=== PATIENT | female | born 1940 | race Caucasian/White ===

== ENCOUNTER → 2016-10-30 | Outpatient (CLI) | payer OTHER, MEDICARE | LOC: FIMAGING 11:27 | PROVIDERS: ATTEND Family Medicine | DX: Z12.31 Encounter for screening mammogram for malignant neoplasm of breast (principal) | CPT/HCPCS: G0202 ==

== ENCOUNTER 2016-11-23 11:56 | Emergency (ER) | payer OTHER, MEDICARE ==
[2016-11-23 12:19] VITALS: RESP 16; TEMP 98.1
--- NOTE | 2016-11-23 13:27 | EDPHY ---
H & P Time Seen by Provider: 11/23/16 12:56 HPI/ROS: CHIEF COMPLAINT: Vertigo HISTORY OF PRESENT ILLNESS: Patient was sent by her primary practice for vertigo. She describes to me a vertigo for many years and describes for me decades of slouching her head forward and getting spinning when she moves into an upright position with her head. For the last 3 years she has been working with the physical therapist on these vestibular symptoms and she feels like it is improving. This past Wednesday night she sat up and moved, and the room started moving and rolling. She was able to walk to the bathroom and back. Since Wednesday she feels like her head is spinning when she moves. It is better lying down. It is similar to previous vertigo except over the past 24 hours her usual physical therapy exercises are not making it better. On my evaluation she is lying on her left side in the bed and is not symptomatic unless she gets up or moves around. Symptoms moderate today. She drove to the office. The office referred the patient to the emergency department for further evaluation. REVIEW OF SYSTEMS: Eye: no change in vision, no double vision ENT: no sore throat Cardiac: no chest pain or syncope Pulmonary: no cough or SOB Abdomen: no vomiting, diarrhea, abdominal pain Musculoskeletal: Chronic plantar fasciitis, unchanged. No neck pain. No recent acceleration or deceleration injury. Skin: no rash Neuro: no headache Constitutional: no fever : no urinary symptoms A comprehensive 10 point review of systems is otherwise negative aside from elements mentioned in the history of present illness. PAST MEDICAL HISTORY: Vertigo as above. Cystocele. Left shoulder surgery. Social history: Travels a lot, plans to go to [place] on a hiking trip in 2 and half weeks. General Appearance: Alert and conversant, cooperative. Eyes: No scleral icterus. Extraocular motion intact. ENT, Mouth: Normal mucous membranes. Normal ear canals and tympanic membranes bilaterally. Respiratory: Normal respiratory effort, breath sounds equal, lungs are clear to auscultation. Cardiovascular: Regular rate and rhythm. Gastrointestinal: Abdomen is soft and non tender. Neurological: Alert and oriented x3. Normally conversant. Face symmetric, normal movement and sensation in all extremities. No pronator drift and finger- to-nose normal bilaterally, normal heel to diehl. Skin: Warm and dry, no rashes. Musculoskeletal: No peripheral edema and no joint swelling. No neck tenderness. Psychiatric: Not agitated. Emergency Department course/MDM: I think it is likely the patient has a worse episode of her chronic vestibular symptoms. Plan for MRI, discharge with oral meclizine if negative for stroke or dissection. 1500: Results discussed. MRI negative for cerebellar infarct or other abnormality, angiography negative. Results discussed with the patient who is ambulatory and standing on the phone when I enter the room. Likely peripheral vertigo, symptomatic treatment. Smoking Status: Never smoked Constitutional: Initial Vital Signs Temperature (C) 36.7 C 11/23/16 12:11 Heart Rate 62 11/23/16 12:11 Respiratory Rate 16 11/23/16 12:11 O2 Sat (%) 96 11/23/16 12:11 O2 Delivery Mode Room Air Allergies/Adverse Reactions: meperidine [From Demerol] Allergy (Verified 11/23/16 12:19) morphine Allergy (Verified 11/23/16 12:19) Home Medications: Medication Instructions Recorded Lipitor 11/23/16 Meclizine HCl [Meclizine HCl 25 mg 25 mg PO Q6 PRN #20 tab 11/23/16 (RX,OTC)] Synthroid 11/23/16 Medical Decision Making - Diagnostics Imaging Results: Imaging Impressions Brain MRI 11/23/16 13:11 Impression: 1. Mild cerebral atrophy. 2. No acute infarct, hemorrhage, hydrocephalus, mass effect, or herniation. 3. Several nonspecific hyperintense T2/FLAIR signal abnormalities in the white matter of bilateral cerebral hemispheres. Differential diagnosis includes mild microvascular ischemic gliosis, post-infectious/post-inflammatory sequela, atypical demyelinating disease, or migraine-related sequela. Findings and recommendations discussed with Emergency Department physician, Dr. Edwar Thurston at 1445 hours on November 23, 2016. Final report concurs with initial preliminary interpretation. Head MRA 11/23/16 13:12 Impression: Negative MRA of the [place]. Findings and recommendations discussed with Emergency Department physician, Dr. Edwar Thurston at 1451 hours on November 23, 2016. Final report concurs with initial preliminary interpretation. Differential Diagnosis: Differential diagnosis considered for dizziness including but not limited to vertebral artery dissection, peripheral and central causes of vertigo, orthostatic causes including dehydration, and blood loss. Departure - Departure Disposition: Home, Routine, Self-Care Clinical Impression: Vertigo Condition: Good Instructions: Vertigo (ED) Referrals: Katrina Rios MD [Primary Care Provider] - As per Instructions Prescriptions: Meclizine HCl [Meclizine HCl 25 mg (RX,OTC)] 25 mg PO Q6 PRN #20 tab PRN Reason: Dizziness
[2016-11-23 15:20] VITALS: BP 172/89; PULSE 80; O2SAT 97
== END 2016-11-23 15:20 | disposition home or self-care (01) ==
DX: R42 Dizziness and giddiness (principal)

== ENCOUNTER → 2017-12-08 | Outpatient (CLI) | payer OTHER, MEDICARE | DX: Z12.31 Encounter for screening mammogram for malignant neoplasm of breast (principal) ==